=== PATIENT | female | born 1995 | race Caucasian/White ===

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

== ENCOUNTER 2018-03-12 19:43 | Emergency (ER) | payer OTHER ==
[2018-03-12] MEDS ORDERED: IBUPROFEN 400 MG TABLET (FP) PO ONE ×2 (20:04→20:54)
--- NOTE | 2018-03-12 20:04 | PDOC ---
Rapid Medical Evaluation Medical Evaluation: Allergies Allergy/AdvReac Type Severity Reaction Status Date / Time latex Allergy Severe Swelling Verified 09/26/16 16:53 Latex, Natural Rubber Allergy Itching Verified 09/26/16 16:53 No Known Drug Allergies Allergy Verified 09/26/16 16:53 SEAFOOD Allergy Severe Uncoded 09/26/16 16:53 I have performed a brief in-person evaluation of this patient. The patient presents with a chief complaint of: c/o sore throat and fever x 2 days; went to [facility] 2 days ago and was given Decadron 4 mg IV and Toradol 30 mg IV x 1 and discharged; states no further testing was done Pertinent physical exam findings: R tonsillar swelling, few exudates along R tonsil; uvula midline I have ordered the following: Reza Taylor The patient will proceed to the ED for further evaluation. 03/12/18 19:58
[2018-03-12 20:05] VITALS: BP 146/69; PULSE 105; TEMP 97.9; BMI 42.4
[2018-03-12] MEDS ORDERED: DEXAMETHASONE LIQUID 0.5 MG/5 ML 240 ML BULK BOTTLE PO ONE (21:13)
[2018-03-12] MEDS ORDERED: DEXAMETHASONE SOD PHOSPHATE 10 MG/1 ML VIAL ONE (21:14)
--- NOTE | 2018-03-12 21:41 | PDOC ---
History of Present Illness - General Chief Complaint: Sore Throat Stated Complaint: Sore Throat/FEVER Time Seen by Provider: 03/12/18 21:03 History Source: Patient Exam Limitations: No Limitations - History of Present Illness Initial Comments: 03/12/18 21:37 HISTORY OF PRESENT ILLNESS: 22-year-old woman denies medical history of presents emergency department for evaluation of 3 days of sore throat. Patient reports having fevers 2 days ago which have since resolved. She had a maximum temperature of 103 according to the patient. Patient was seen and evaluated at another hospital was given steroids and had blood and urine tested which came back negative. Patient was discharged home with instructions for symptomatic treatment. Patient reports the pain referred started on her left side and today when she woke up is currently on the right. She denies any difficulty breathing , drooling or change in voice. No recent travel or sick contacts. PAST MEDICAL HISTORY: Denies past medical history SURGICAL HISTORY: Denies ALLERGIES: No known drug allergies REVIEW OF SYSTEMS General/Constitutional: Resolved fevers and chills. Denies weakness, weight change. HEENT: Denies change in vision. Denies ear pain or discharge. +sore throat. Cardiovascular: Denies chest pain or shortness of breath. Respiratory: Denies cough, wheezing, or hemoptysis. Gastrointestinal: Denies nausea, vomiting, diarrhea or constipation. Denies rectal bleeding. Genitourinary: Denies dysuria, frequency, or change in urination. Musculoskeletal: Denies joint or muscle swelling or pain. Denies neck or back pain. Skin and breasts: Denies rash or easy bruising. Neurologic: Denies headache, vertigo, loss of consciousness, or loss of sensation. Psychiatric: Denies depression or anxiety. Endocrine: Denies increased thirst. Denies abnormal weight change. Hematologic/Lymphatic: Denies anemia, easy bleeding, or history of blood clots. Allergic/Immunologic: Denies hives or skin allergy. Denies latex allergy. PHYSICAL EXAM General Appearance: Well-appearing, appropriately dressed. No apparent distress , no intoxication. HEENT: EOMI, PERRLA, normal voice. No conjunctival pallor. No photophobia, scleral icterus. +3 tonsils present. Tonsils are erythematous without lesions or exudates present in the oropharynx. Uvula is midline. Cobblestoning noted in the posterior oropharynx. Neck: Supple. Trachea midline. No rigidity, carotid bruit, stridor, or thyromegaly. Tender anterior cervical lymphadenopathy present. Respiratory/Chest: Lungs CTAB. No shortness of breath, chest tenderness, respiratory distress, accessory muscle use. No crackles, rales, rhonchi, stridor , wheezing, dullness Cardiovascular: RRR. S1, S2. No JVD, murmur, bradycardia, tachycardia. Gastrointestinal/Abdominal: Normal bowel sounds. Abdomen soft, non-distended. No tenderness or rebound tenderness. No organomegaly, pulsatile mass, guarding, hernia, hepatomegaly, splenomegaly. Musculoskeletal/Extremities: Normal inspection. FROM of all extremities, normal capillary refill. Pelvis Stable. No CVA tenderness. No tenderness to extremities, pedal edema, swelling, erythema or deformity. Integumentary: Appropriate color, dry, warm. No cyanosis, erythema, jaundice or rash Neurologic: student services representative II-XII intact. Fully oriented, alert. Appropriate mood/affect. Motor strength 5/5. No appreciable EOM palsy, facial droop or sensory deficit. Past History - Past Medical History Allergies/Adverse Reactions: Allergies Allergy/AdvReac Type Severity Reaction Status Date / Time latex Allergy Severe Swelling Verified 03/12/18 19:59 Latex, Natural Rubber Allergy Itching Verified 03/12/18 19:59 No Known Drug Allergies Allergy Verified 09/26/16 16:53 SEAFOOD Allergy Severe Uncoded 03/12/18 19:59 Home Medications: Ambulatory Orders Amoxicillin - [Amoxicillin 500mg Capsule -] 500 mg PO BID #20 capsule 03/12/18 Asthma: Yes Cancer: No Cardiac Disorders: No Diabetes: No HTN: No Seizures: No Thyroid Disease: No - Surgical History Abdominal Surgery: Yes - Reproductive History (#): 1 Para: 0 Therapeutic (s) & number: No - Immunization History Immunization Up to Date: Yes - Suicide/Smoking/Psychosocial Hx Smoking Status: No Smoking History: Never smoked Have you smoked in the past 12 months: No Number of Cigarettes Smoked Daily: 0 Hx Alcohol Use: No Drug/Substance Use Hx: No Substance Use Type: None Hx Substance Use Treatment: No *Physical Exam - Vital Signs Last Vital Signs Temp Pulse Resp BP Pulse Ox 97.9 F 105 H 24 H 146/69 100 03/12/18 19:59 03/12/18 19:59 03/12/18 19:59 03/12/18 19:59 03/12/18 19:59 Moderate Sedation - Procedure Monitoring Vital Signs: Procedure Monitoring Vital Signs Temperature 97.9 F 03/12/18 19:59 Pulse Rate 105 H 03/12/18 19:59 Respiratory Rate 24 H 03/12/18 19:59 Blood Pressure 146/69 03/12/18 19:59 O2 Sat by Pulse Oximetry (%) 100 03/12/18 19:59 ED Treatment Course - Medications Given in the ED: ED Medications Discontinued Medications Generic Name Dose Route Start Last Admin Trade Name Bharatq PRN Reason Stop Dose Admin Dexamethasone 10 mg 03/12/18 21:13 03/12/18 21:16 Decadron Liquid - PO 03/12/18 21:14 10 mg ONCE ONE Administration Ibuprofen 800 mg 03/12/18 20:04 03/12/18 20:55 Motrin - PO 03/12/18 20:05 800 mg ONCE ONE Administration Medical Decision Making - Medical Decision Making 03/12/18 21:40 A/P: 22-year-old woman with pharyngitis Rapid strep testing Decadron 10 mg orally now Motrin as been given in rapid medical evaluation Reassess 03/12/18 22:17 Rapid strep testing is positive. I will discharge the patient home with prescription for amoxicillin. I discussed the physical exam findings, ancillary test results and final diagnoses with the patient. I answered all of the patient's questions. The patient was satisfied with the care received and felt comfortable with the discharge plan and treatment plan. The patient will call their primary care physician within 24 hours to arrange follow-up and will return to the Emergency Department with any new, persistent or worsening symptoms. *DC/Admit/Observation/Transfer Diagnosis at time of Disposition: Acute pharyngitis Qualifiers: Pharyngitis/tonsillitis etiology: streptococcus Qualified Code(s): J02.0 - Streptococcal pharyngitis - Discharge Dispostion Disposition: HOME Condition at time of disposition: Stable Decision to Admit order: No - Prescriptions Prescriptions: Amoxicillin - [Amoxicillin 500mg Capsule -] 500 mg PO BID #20 capsule - Referrals - Patient Instructions Additional Instructions: Take amoxicillin as prescribed. Salt water garggles. Throw away your toothbrush in 3 days and start using a new toothbrush. No sharing of drinks, utensils or toothbrushes. Take Motrin as directed by nursing home aide's instructions. Return to ED for worsening fevers, worsening sore throat, chest pain, shortness of breath or any other concerns. - Post Discharge Activity Forms/Work/School Notes: Back to Work
== END 2018-03-12 22:19 | disposition home or self-care (01) ==
LOC: JERFT 19:43
DX: J02.0 Streptococcal pharyngitis (principal); B95.0 Streptococcus, group A, as the cause of diseases classified elsewhere; Z87.09 Personal history of other diseases of the respiratory system
CPT/HCPCS: 87880; 99281-25

== ENCOUNTER 2019-11-19 08:20 | Emergency (ER) | payer OTHER ==
[2019-11-19 08:25] VITALS: BMI 42.0
--- OUTSIDE RECORDS SUMMARY | 2019-11-19 08:51 | XMS ---
:1995 Author Organization [facility] Care Team Providers Name Role Phone ED STAFF PHYSICIAN Unavailable Unavailable ED STAFF PHYSICIAN Unavailable Unavailable Re-disclosure Warning The records that you are about to access may contain information from federally- assisted alcohol or drug abuse programs. If such information is present, then the following federally mandated warning applies: This information has been disclosed to you from records protected by federal confidentiality rules (42 CFR part 2). The federal rules prohibit you from making any further disclosure of this information unless further disclosure is expressly permitted by the written consent of the person to whom it pertains or as otherwise permitted by 42 CFR part 2. A general authorization for the release of medical or other information is NOT sufficient for this purpose. The Federal rules restrict any use of the information to criminally investigate or prosecute any alcohol or drug abuse patient.The records that you are about to access may contain highly sensitive health information, the redisclosure of which is protected by Article 27-F of the [place] State Public Health law. If you continue you may haveaccess to information: Regarding HIV / AIDS; Provided by facilities licensed or operated by the [facility] Office of Mental Health; or Provided by the [facility] Office for People With Developmental Disabilities. If such information is present, then the following [facility] mandated warning applies: This information has been disclosed to you from confidential records which are protected by state law. State law prohibits you from making any further disclosure of this information without the specific written consent of the person to whom it pertains, or as otherwise permitted by law. Any unauthorized further disclosure in violation of state law may result in a fine or detention sentence or both. A general authorization for the release of medical or other information is NOT sufficient authorization for further disclosure. Allergies and Adverse Reactions Type Description Substance Reaction Status Data Source(s ) latex latex latex Unknown Active eCW[facility] ([facility] latex latex latex Unknown Active eCW2 ([facility]) Propensity to latex Propensity to Unknown Active eCW2 (Pl [facility]ed adverse reactions adverse reactions [facility]) Propensity to latex No known hives Active eCW3 ([facility] adverse reactions [facility]) Propensity to latex No known hives Active eCW3 ([facility] adverse reactions [facility]) No Known No Known Allergies No Known eCW2 ( [facility] Allergies [facility]) Encounters Encounter Providers Location Date Indications Data Source(s ) [facility] [place] [facility]T [facility] 02/22/2019 [facility] [place] AM EST [facility] 02/08/2019 [facility] [place] AM EST [facility] 02/06/2019 [facility]CW[facility] [place] AM EST [facility]) Emergency Attender: HAKAN Tamez 01/28/2019 [facility] ED STAFF 04:07:00 [facility] PHYSICIANAttend PM EST - er: STAFF ED 01/28/2019 STAFF 05:19:00 PHYSICIANAdmitt PM EST er: HAKAN ED STAFF PHYSICIAN Patient discharged. Outpatient [facility] 10/29/2018 12:00:00 eCW3 ([facility] A28 AM EDT - 10/29/[address] [facility]) 12:00:00 AM EDT Outpatient [facility] 08/21/2018 12:00:00 eCW3 ([facility] A28 AM EDT - 08/21/[address] [facility]) 12:00:00 AM EDT [facility] 12:00:00 eCW2 ([facility] [place] [facility] AM EDT [facility]) Immunizations Vaccine Date Status Description Data Source(s) No Known Immunizations completed eCW2 ([facility]) No Known Immunizations completed eCW2 ([facility]) No Known Immunizations completed eCW2 ([facility]) Medications Medication Brand Start Product Dose Route Administrative Pharmacy [facility] Indications Reaction Description Data Name Date Form Instructions Instructions Source(s) DEPO-CREMATORY OPERATOR UNK 11/07/ active DEPO-PROV ERA eCW3 A 150 MG/ML 2016 150 MG/ML ([facility] 12:00: [facility] 00 AM [facility] EDT Care) DEPO-CREMATORY OPERATOR UNK 11/07/ active DEPO-PROV ERA eCW3 A 150 MG/ML 2016 150 MG/ML ([facility] 12:00: [facility] 00 AM [facility] EDT Care) UNK 12/29/ suspend eC W3 Vitamins 2015 ed Vitamins (Sen 12:00: [facility] 00 AM Health EDT Care) Iron UNK 12/29/ suspend Iron eCW3 2016 ed (Sen 12:00: [facility] 00 AM Health EDT Care) UNK 12/29/ suspend eC W3 Vitamins 2016 ed Vitamins (Sen 12:00: [facility] 00 AM Health EDT Care) Iron UNK 12/29/ suspend Iron eCW3 2016 ed (Sen 12:00: [facility] 00 AM Health EDT Care) Diphenhydra diphen 1 complet Wilfredo nt mine hydram ed Agusto Hydrochlori ine Medical de 25 MG HCl 25 Center Oral mg Capsule Capsul diphenhydra e, mine HCl 25 Ordere mg Capsule, d By: Ordered By: Elmer Lovell, FNPDirectio FNPDir ns: 1 ection capsule s: 1 oral every capsul six hours e oral PRN itching every six hours PRN itchin g DEPO-CREMATORY OPERATOR UNK active DEPO-CREMATORY OPERATOR A eCW3 A 150 MG/ML 150 MG/ML ([facility]) medroxyprog Depo-P active 1 ml eCW2 esterone rovera ([facility]anned acetate 150 150 [facility] MG/ML MG/ML - [place] [facility] [place] [employer] [Depo-Prove ed) ra] Depo-Gear Shaver Set Up Operator a 150 MG/ML medroxyprog Depo-P active 1 ml eCW2 esterone rovera (Planned acetate 150 150 [facility] MG/ML MG/ML - Sen [facility] [place] [employer] [facility] [Depo-Prove ed) ra] Depo-Gear Shaver Set Up Operator a 150 MG/ML DEPO-CREMATORY OPERATOR UNK active DEPO-CREMATORY OPERATOR A eCW3 A 150 MG/ML 150 MG/ML ([facility]) medroxyprog Depo-P active 1 ml eCW2 esterone rovera (Planned acetate 150 150 [facility] MG/ML MG/ML - Sen [facility] [place] [employer] [facility] [Depo-Prove ed) ra] Depo-Gear Shaver Set Up Operator a 150 MG/ML medroxyprog Depo-P 1.0 active Depo-Prov era eCW2 esterone rovera {ml} 150 MG/ML (Pham nned acetate 150 150 Pa[facility] od MG/ML MG/ML - Sen In[facility] [employer] [facility] [Depo-Prove ed) ra] Depo-Gear Shaver Set Up Operator a 150 MG/ML DEPO-CREMATORY OPERATOR UNK active DEPO-CREMATORY OPERATOR A eCW3 A ([facility]) DEPO-CREMATORY OPERATOR UNK active DEPO-CREMATORY OPERATOR A eCW3 A ([facility]) Insurance Providers Payer name Policy type Policy ID Covered Covered green party's Policy P clara / Coverage green party ID relationship to [place] Inf ormation type [place] [id number] KASHMIR W [id number] OPTIMA O 01 HEALTH Problems, Conditions, and Diagnoses Code Display Name Description Problem Type Effective Data Sour ce(s) Dates Z30.013 Encounter for Encounter for Problem 11/07/2016 eCW3 (Hu dson initial initial 12:00:00 AM [facility] prescription of prescription of EDT Care ) injectable injectable contraceptive contraceptive Z39.2 Encounter for Encounter for Problem 08/01/2016 eCW3 (Hu dson visit visit 12:00:00 AM [facility] EDT Care) Z33.1 Problem eCW3 ([facility]) Unknown Problems Unknown Problems Problem eC W2 ([facility]) Unknown Problems Unknown Problems Problem eC W2 ([facility]) Unknown Problems Unknown Problems Problem eC W2 ([facility]) R21 Rash and other RASH AND OTHER Diagnosis 01/28/2019 [facility] nonspecific skin NONSPECIFIC SKIN 04:07:00 PM edical Center eruption ERUPTION EST Surgeries/Procedures Procedure Description Date Indications Data Source(s) US Abdominal, 02/08/2019 eCW2 ([facility] uterus 12:00:00 AM EST [facility]) HEMOGLOBIN 02/06/2019 eCW2 ([facility] 12:00:00 AM EST [facility] [facility]) US transvaginal, 02/06/2019 eCW2 (Plann ed uterus 12:00:00 AM EST [facility] [place] [facility]) Test 02/06/2019 eCW2 ([facility] 12:00:00 AM EST [facility]) BLOOD TYPING RH FACTOR 02/06/2019 eCW2 ([facility] 12:00:00 AM EST [facility]) GONORRHEA, DANG 02/06/2019 eCW2 ([facility] 12:00:00 AM EST [facility]) CHLAMYDIA, DANG 02/06/2019 eCW2 ([facility] 12:00:00 AM EST [facility]) Results ID Date Data Source Urine Test (HSPT) 10/28/2019 06:38:14 AM EDT eCW2 ([facility]) Name Value Range Interpretation Code Description Data Shanta rce(s) Supporting Document(s ) negative Result eCW2 ([facility]) ID Date Data Source Urinalysis 03/10/2018 11:56:00 PM EST [facility] Name Value Range Interpretation Description Data Sup porting Code Source(s) Document(s ) UNK CLEAR <content Saint styleCode="Ayo Agusto d">Urine Medical Clarity Center </content>JANNA R <content styleCode="Bri lics"> (CLEAR )</content> Color of Urine YELLOW <content Saint styleCode="Ayo Agusto d">Color, Medical Urine Center </content>YELL OW <content styleCode="Bri lics"> (YELLOW )</content> Glucose NEGATIVE <content Saint [Mass/volume] styleCode="Ayo Whittakers in Urine by d">Urine Medical Test strip Glucose Center </content>NEGA TIVE MG/DL<content styleCode="Bri lics"> (NEGATIVE MG/DL)</conten t> Specific 1.015-1.02 <content Saint gravity of 5 styleCode="Ayo Whittakers Urine by Test d">Urine Medical strip Specific Center [place] </content>1.02 0 NM<content styleCode="Bri lics"> (1.015-1.025 NM)</content> Hemoglobin NEGATIVE <content Saint [Presence] in styleCode="Ayo Whittakers Urine by Test d">Urine Blood Medical strip </content>MODE Center RATE <content styleCode="Bri lics"> (NEGATIVE )</content> Ketones NEGATIVE <content Saint [Mass/volume] styleCode="Ayo Agusto in Urine by d">Urine Medical Test strip Ketone Center </content>NEGA TIVE MG/DL<content styleCode="Bri lics"> (NEGATIVE MG/DL)</conten t> UNK NEGATIVE <content Saint styleCode="Ayo Agusto d">Urine Medical Bilirubin Center </content>NEGA TIVE <content styleCode="Bri lics"> (NEGATIVE )</content> pH of Urine by 4.5-8.0 <content Saint Test strip styleCode="Ayo Agusto d">Urine pH Medical </content>7.5 Center NM<content styleCode="Bri lics"> (4.5-8.0 NM)</content> Leukocyte NEGATIVE <content Saint esterase styleCode="Ayo Agusto [Presence] in d">Urine Medical Urine by Test Leukocyte Center strip </content>NEGA TIVE <content styleCode="Bri lics"> (NEGATIVE )</content> Nitrite NEGATIVE <content Saint [Presence] in styleCode="Ayo Agusto Urine by Test d">Urine Medical strip Nitrite Center </content>NEGA TIVE <content styleCode="Bri lics"> (NEGATIVE )</content> Protein NEGATIVE <content Saint [Mass/volume] styleCode="Ayo Agusto in Urine by d">Urine Medical Test strip Protein Center </content>NEGA TIVE MG/DL<content styleCode="Bri lics"> (NEGATIVE MG/DL)</conten t> Urobilinogen 0.2-1.0 <content Saint [Units/volume] styleCode="Ayo Agusto in Urine by d">Urine Medical Test strip Urobilinogen Center </content>0.2 MG/DL<content styleCode="Bri lics"> (0.2-1.0 MG/DL)</conten t> UNK <content Saint styleCode="Ayo Agusto d">Epithelial Medical Cell Center </content>2-5 LPF (Reference Range: not available)<br/ > UNK 0-3 <content Saint styleCode="Ayo Agusto d">Urine Red Medical Blood Cell Center </content>5 - 10 HPF<content styleCode="Bri lics"> (0-3 HPF)</content> UNK NEGATIVE <content Saint styleCode="Ayo Agusto d">Urine Medical Bacteria Center </content>FEW HPF<content styleCode="Bri lics"> (NEGATIVE HPF)</content> UNK 0-3 <content Saint styleCode="Ayo Agusto d">Urine White Medical Blood Cell Center </content>0-3 HPF<content styleCode="Bri lics"> (0-3 HPF)</content> ID Date Data Source HematologyRou 03/10/2018 11:56:00 PM EST [facility] Name Value Range Interpretation Description Data Sup porting Code Source(s) Document(s ) Hemoglobin 12.3-16. <content Saint [Mass/volume] in 0 styleCode="Bold Agusto Blood ">Hemoglobin Medical </content>12.4 Center G/DL<content styleCode="Ital ics"> (12.3-16.0 G/DL)</content> Erythrocytes 4.0-5.1 <content Saint [#/volume] in styleCode="Bold Agusto Blood by ">Red Blood Medical Automated count Cell Count Center </content>4.60 MCUMM<content styleCode="Ital ics"> (4.0-5.1 MCUMM)</content > Leukocytes 4.4-11.0 Above high <content Saint [#/volume] in normal styleCode="Bold Agusto Blood by ">White Blood Medical Automated count Cell Count Center </content>12.62 KCUMM H<content styleCode="Ital ics"> (4.4-11.0 KCUMM)</content > Erythrocyte mean 26.0-34. <content Saint corpuscular 0 styleCode="Bold Agusto hemoglobin ">Mean Medical [Entitic mass] Corposcular Center by Automated Hemoglobin count </content>27.0 PG<content styleCode="Ital ics"> (26.0-34.0 PG)</content> Erythrocyte mean 80.0-100 <content Saint corpuscular .0 styleCode="Bold Agusto volume [Entitic ">Mean Medical volume] by Corpuscular Center Automated count Volume </content>81.7 FL<content styleCode="Ital ics"> (80.0-100.0 FL)</content> Erythrocyte mean 32.0-37. <content Saint corpuscular 0 styleCode="Bold Agusto hemoglobin ">Mean Corpus. Medical concentration Hgb Center [Mass/volume] by Concentration Automated count (MCHC) </content>33.0 G/DL<content styleCode="Ital ics"> (32.0-37.0 G/DL)</content> Hematocrit 36.0-46. <content Saint [Volume 0 styleCode="Anyi Whittakers Fraction] of ">Hematocrit Medical Blood by </content>37.6 Center Automated count %<content styleCode="Ital ics"> (36.0-46.0 %)</content> Platelets 130-400 <content Saint [#/volume] in styleCode="Bold Agusto Blood by ">Platelet Medical Automated count Count Center </content>289 KCUMM<content styleCode="Ital ics"> (130-400 KCUMM)</content > Erythrocyte 11.5-14. <content Saint distribution 5 styleCode="Anyi Whittakers width [Ratio] by ">Red Cell Medical Automated count Distribution Center Width </content>12.8 %<content styleCode="Ital ics"> (11.5-14.5 %)</content> UNK 0 <content Saint styleCode="Bold Agusto ">Nucleated Red Medical Blood Cell Center </content>0.0 /100<content styleCode="Ital ics"> (0 /100)</content> Platelet mean 8.0-11.0 Above high <content Saint volume [Entitic normal styleCode="Bold Agusto volume] in Blood ">Mean Platelet Medical by Automated Volume Center count </content>11.3 FL H<content styleCode="Ital ics"> (8.0-11.0 FL)</content> UNK 0.0 <content Saint styleCode="Bold Agusto ">Nucleated Red Medical Blood Cell Center Count </content>0.00 KCUMM<content styleCode="Ital ics"> (0.0 KCUMM)</content > ID Date Data Source GFR(Creatinine) 03/10/2018 11:56:00 PM EST [facility] Name Value Range Interpretation Code Description Data Shanta rce(s) Supporting Document(s ) UNK > 60 <content [facility] styleCode="Bold"> Medical Cent er EGFR </content>113 GFR<content styleCode="Italic s"> (> 60 GFR)</content> ID Date Data Source BMP 03/10/2018 11:56:00 PM EST [facility] Name Value Range Interpretation Description Data Sup porting Code Source(s) Document(s ) Potassium 3.5-5.3 <content Saint [Moles/volume] styleCode="Ayo Whittakers in Serum or d">Potassium Medical Plasma </content>4.9 Center MEQ/L<content styleCode="Bri lics"> (3.5-5.3 MEQ/L)</conten t> Sodium 137-145 <content Saint [Moles/volume] styleCode="Ayo Whittakers in Serum or d">Sodium Medical Plasma </content>138 Center MEQ/L<content styleCode="Bri lics"> (137-145 MEQ/L)</conten t> Carbon 22-30 <content Saint dioxide, total styleCode="Ayo Whittakers [Moles/volume] d">Carbon Medical in Serum or Dioxide Center Plasma </content>22 MEQ/L<content styleCode="Bri lics"> (22-30 MEQ/L)</conten t> Creatinine 0.5-1.3 <content Saint [Mass/volume] styleCode="Ayo Whittakers in Serum or d">Creatinine Medical Plasma </content>0.7 Center MG/DL<content styleCode="Bri lics"> (0.5-1.3 MG/DL)</conten t> Glucose 74-106 <content Saint [Mass/volume] styleCode="Ayo Whittakers in Serum or d">Glucose Medical Plasma </content>92 Center MG/DL<content styleCode="Bri lics"> (74-106 MG/DL)</conten t> UNK 7-17 <content Saint styleCode="Ayo Liz d">BUN Medical </content>14 Center MG/DL<content styleCode="Bri lics"> (7-17 MG/DL)</conten t> Chloride 98-107 <content Saint [Moles/volume] styleCode="Ayo Whittakers in Serum or d">Chloride Medical Plasma </content>102 Center MEQ/L<content styleCode="Bri lics"> (98-107 MEQ/L)</conten t> Calcium 8.4-10.2 <content Saint [Mass/volume] styleCode="Ayo Agusto in Serum or d">Calcium Medical Plasma </content>9.9 Center MG/DL<content styleCode="Bri lics"> (8.4-10.2 MG/DL)</conten t> UNK > 60 <content Saint styleCode="Ayo Agusto d">EGFR Medical </content>113 Center GFR<content styleCode="Bri lics"> (> 60 GFR)</content> Procedure Social History Code Duration Value Status Description Data Source(s ) Smoking 10/28/2019 Never Smoker completed Never Smoker eCW2 ([facility] 12:00:00 AM EDT [facility]) Smoking 02/03/2019 Never Smoker completed Never Smoker eCW3 ([facility] 12:00:00 AM EST [facility]) Smoking 02/03/2019 Never Smoker completed Never Smoker eCW3 ([facility] 12:00:00 AM EST [facility]) Smoking 01/28/2019 Denies Ever completed Denies Ever Smoked [facility] 04:54:00 PM EST Smoked Medical C enter Smoking 01/28/2019 Denies Ever completed Denies Ever Smoked [facility] 04:35:00 PM EST Smoked Medical C enter Smoking 03/11/2018 Denies Ever completed Denies Ever Smoked [facility] 01:02:00 AM EST Smoked Medical C enter Smoking 03/10/2018 Denies Ever completed Denies Ever Smoked [facility] 11:40:00 PM EST Smoked Medical C enter Smoking 03/10/2018 Denies Ever completed Denies Ever Smoked [facility] 11:39:00 PM EST Smoked Medical C enter Never Smoker completed Never Smoker eCW2 ([facility]) Never Smoker completed Never Smoker eCW3 ([facility]) Never Smoker completed Never Smoker eCW3 ([facility]) Smoking Current Smoker completed Current Smoker eCW2 ( [facility]) Smoking Current Smoker completed Current Smoker eCW2 ( [facility]) Smoking Current Smoker completed Current Smoker eCW2 ( [facility]) Vital Signs ID Date Data Source UNK Name Value Range Interpretation Code Description Data Source(s) Diastolic blood 62 mm[Hg] 62 mm[Hg] eCW2 (Pham nned pressure [facility]) Systolic blood 113 mm[Hg] 113 mm[Hg] eCW2 ([facility] pressure [facility]) Body mass index 42.38 kg/m2 42.38 kg/m2 eCW2 (P lanned (BMI) [Ratio] [facility]) Body weight 217 [lb_av] 217 [lb_av] eCW2 ([facility]) Body height 60 [in_i] 60 [in_i] eCW2 ([facility]) Diastolic blood 64 mm[Hg] 64 mm[Hg] eCW2 (Pham nned pressure [facility]) Systolic blood 91 mm[Hg] 91 mm[Hg] eCW2 ([facility] pressure [facility]) Body mass index 43.94 kg/m2 43.94 kg/m2 eCW2 (P lanned (BMI) [Ratio] [facility]) Body weight 225 [lb_av] 225 [lb_av] eCW2 (Plann ed Measured [facility]) Body height 60 [in_us] 60 [in_us] eCW2 ([facility]) Diastolic blood 64 mm[Hg] 64 mm[Hg] eCW2 (Pham nned pressure [facility]) Systolic blood 91 mm[Hg] 91 mm[Hg] eCW2 ([facility] pressure [facility]) Body mass index 43.94 kg/m2 43.94 kg/m2 eCW2 (P lanned (BMI) [Ratio] [facility]) Body weight 225 [lb_av] 225 [lb_av] eCW2 (Plann ed Measured [facility]) Body height 60 [in_us] 60 [in_us] eCW2 ([facility]) Diastolic blood 83 mm[Hg] 83 mm[Hg] eCW2 (Pham nned pressure [facility]) Systolic blood 107 mm[Hg] 107 mm[Hg] eCW2 ([facility]) Body height 60 [in_us] 60 [in_us] eCW2 ([facility]) Body weight 91.169720 91.417830 kg [facility] Measured kg [facility] Body temperature 36.291618 36.998841 [facility] Respiratory rate 18 /min 18 /min [facility] Oxygen saturation 99 % 99 % [facility] blood [facility] by Pulse oximetry Heart rate 101 /min 101 /min [facility] Diastolic blood 87 mm[Hg] 87 mm[Hg] [facility] Systolic blood 155 mm[Hg] 155 mm[Hg] [facility] Body temperature 36.400752 36.516450 [facility] Respiratory rate 17 /min 17 /min [facility] Oxygen saturation 98 % 98 % [facility] blood [facility] by Pulse oximetry Heart rate 98 /min 98 /min [facility] Diastolic blood 65 mm[Hg] 65 mm[Hg] [facility] Systolic blood 121 mm[Hg] 121 mm[Hg] [facility] Body temperature 36.706479 36.147973 [facility] Respiratory rate 20 /min 20 /min [facility] Oxygen saturation 98 % 98 % [facility] by Pulse oximetry Heart rate 111 /min 111 /min [facility] Diastolic blood 49 mm[Hg] 49 mm[Hg] [facility] Systolic blood 118 mm[Hg] 118 mm[Hg] [facility] Body temperature 38.754885 38.884904 [facility] Respiratory rate 18 /min 18 /min [facility] Oxygen saturation 98 % 98 % [facility] by Pulse oximetry Heart rate 116 /min 116 /min [facility] Diastolic blood 98 mm[Hg] 98 mm[Hg] [facility] Systolic blood 145 mm[Hg] 145 mm[Hg] [facility] Patient Treatment Plan of Care Planned Activity Planned Date Details Description Data Source (s) Diphenhydramine Hydrochloride [facility] 25 MG Oral Capsule Center
[2019-11-19] MEDS ORDERED: IBUPROFEN 600 MG TABLET (FP) PO ONE ×2 (09:27→09:41)
[2019-11-19] MEDS ORDERED: LACTATED RINGERS SOLUTION 1000 ML INFUS.BAG IV ONE (09:27)
[2019-11-19 10:21] LABS: BASO % 0.9 % (0-2.0); EOS % 0.3 % (0-4.5); HEMATOCRIT 33.4 % (32.4-45.2); HEMOGLOBIN 11.2 GM/dL (10.7-15.3); MCHC 33.5 g/dl (32.0-36.0); MEAN CELL VOLUME 80.6 fl (80-96); MEAN PLT VOLUME 8.7 fl (7.5-11.1); MONO % 4.3 % (3.8-10.2); NEUT % 83.5 % (42.8-82.8); PLATELET COUNT 243 K/MM3 (134-434); RBC 4.14 M/mm3 (3.60-5.2); RDW 15.4 % (11.6-15.6); WHITE BLOOD COUNT 5.7 K/mm3 (4.0-10.0)
[2019-11-19 10:23] LABS: PH,URINE >= 9.0 (5.0-8.0); URINE APPEARANCE CLEAR; URINE BILIRUBIN NEGATIVE (NEGATIVE); URINE COLOR YELLOW; URINE GLUCOSE (UA) NEGATIVE (NEGATIVE); URINE KETONE NEGATIVE (NEGATIVE); URINE LEUK ESTERASE NEGATIVE (NEGATIVE); URINE NITRITE NEGATIVE (NEGATIVE); URINE PROTEIN NEGATIVE (NEGATIVE)
[2019-11-19 10:25] LABS: HCG,QUALITATIVE URINE Negative
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
[2019-11-19 10:31] VITALS: TEMP 98.5
[2019-11-19 10:52] LABS: ALBUMIN 3.6 g/dl (3.4-5.0); ALK PHOS 81 U/L (45-117); ANION GAP 6 MMOL/L (8-16); BILIRUBIN,TOTAL 0.2 mg/dL (0.2-1); BLOOD UREA NITROGEN 15.2 mg/dL (7-18); CALCIUM 8.6 mg/dL (8.5-10.1); CHLORIDE 106 mmol/L (98-107); CO2 26 mmol/L (21-32); CREATININE 0.7 mg/dL (0.55-1.3); GLUCOSE,RANDOM 97 mg/dL (74-106); POTASSIUM 4.8 mmol/L (3.5-5.1); SGOT/AST 19 U/L (15-37); SGPT/ALT 27 U/L (13-61); SODIUM 138 mmol/L (136-145); TOT PROT 6.9 g/dl (6.4-8.2)
[2019-11-19 11:40] VITALS: BP 130/81; PULSE 89
--- NOTE | 2019-11-19 13:55 | EKG ---
Test Reason : Blood Pressure : / mmHG Vent. Rate : 096 BPM Atrial Rate : 096 BPM P-R Int : 140 ms QRS Dur : 074 ms QT Int : 328 ms P-R-T Axes : 015 019 026 degrees QTc Int : 414 ms NORMAL SINUS RHYTHM NORMAL ECG WHEN COMPARED WITH ECG OF 26-SEP-2016 16:34, NO SIGNIFICANT CHANGE WAS FOUND Confirmed by Srinivas Calderon ([id number]) on 11/19/2019 1:55:17 PM Referred By: Confirmed By:Srinivas Calderon
== END 2019-11-19 11:40 | disposition home or self-care (01) ==
LOC: JER 08:20
DX: R55 Syncope and collapse (principal); R50.9 Fever, unspecified
CPT/HCPCS: 36415; 71045-TC-FY; 80053; 81003; 82550; 84484; 84703; 85025; 87086; 87186; 93005; 93010; 99285-25; U0003

== ENCOUNTER 2020-02-24 17:12 | Emergency (ER) | payer OTHER ==
[2020-02-24 17:23] VITALS: BP 128/71; PULSE 105; TEMP 98.3; BMI 34.2
[2020-02-24] MEDS ORDERED: ACETAMINOPHEN 1000 MG/100 ML VIAL (NON FORMULARY) IVPB ONE (17:51)
[2020-02-24] MEDS ORDERED: SODIUM CHLORIDE 1,000 ML IV STA (17:51)
[2020-02-24] MEDS ORDERED: ACETAMINOPHEN INJECTION 100 ML IVPB ONE (18:20)
[2020-02-24 18:48] LABS: BASO % 0.5 % (0-2.0); EOS % 0.3 % (0-4.5); HEMATOCRIT 32.9 % (32.4-45.2); HEMOGLOBIN 11.1 GM/dL (10.7-15.3); MCH 27.8 pg (25.7-33.7); MCHC 33.7 g/dl (32.0-36.0); MEAN CELL VOLUME 82.3 fl (80-96); MEAN PLT VOLUME 8.8 fl (7.5-11.1); MONO % 5.9 % (3.8-10.2); NEUT % 69.3 % (42.8-82.8); PLATELET COUNT 275 K/MM3 (134-434); RBC 3.99 M/mm3 (3.60-5.2); RDW 14.2 % (11.6-15.6); WHITE BLOOD COUNT 7.3 K/mm3 (4.0-10.0)
[2020-02-24 18:51] LABS: EPI CELLS >36 /uL (0-25.1); HYALINE CASTS 7 /uL (0-3.1); URINE APPEARANCE CLOUDY; URINE BACTERIA 2632 /uL (0-1359); URINE BILIRUBIN NEGATIVE (NEGATIVE); URINE COLOR YELLOW; URINE GLUCOSE (UA) NEGATIVE (NEGATIVE); URINE KETONE NEGATIVE (NEGATIVE); URINE LEUK ESTERASE TRACE (NEGATIVE); URINE NITRITE NEGATIVE (NEGATIVE); URINE PROTEIN NEGATIVE (NEGATIVE); URINE RBC 10 /uL (0-23.9); URINE UROBILINOGEN 0.2 mg/dL (0.2-1.0); URINE WBC 253 /uL (0-25.8)
[2020-02-24 19:06] LABS: POTASSIUM 4.5 mmol/L (3.5-5.1)
[2020-02-24 19:09] LABS: CALCIUM 9.4 mg/dL (8.5-10.1)
[2020-02-24 19:10] LABS: ALBUMIN 3.1 g/dl (3.4-5.0); BLOOD UREA NITROGEN 11.2 mg/dL (7-18); MAGNESIUM 1.6 mg/dL (1.8-2.4)
[2020-02-24 19:13] LABS: CREATININE 0.6 mg/dL (0.55-1.3)
[2020-02-24 19:14] LABS: BILIRUBIN,TOTAL 0.8 mg/dL (0.2-1); TOT PROT 6.4 g/dl (6.4-8.2)
[2020-02-24] MEDS ORDERED: MAGNESIUM SULF 50% (8.12 MEQ/2 ML-1 GM VIAL) IVPB ONE (20:15)
[2020-02-24] MEDS ORDERED: MAGNESIUM SULFATE IN WATER 2 GM/50 ML IVPB IVPB ONE (20:19)
== END 2020-02-24 21:19 | disposition home or self-care (01) ==
LOC: JER 17:12
PROC: 3E033NZ Introduction of Analgesics, Hypnotics, Sedatives into Peripheral Vein, Percutaneous Approach (ICD-10-PCS; principal; 2020-02-24)
PROC: 3E033GC Introduction of Other Therapeutic Substance into Peripheral Vein, Percutaneous Approach (ICD-10-PCS; 2020-02-24)
PROC: 3E0337Z Introduction of Electrolytic and Water Balance Substance into Peripheral Vein, Percutaneous Approach (ICD-10-PCS; 2020-02-24)
DX: O23.42 Unspecified infection of urinary tract in pregnancy, second trimester (principal); Z3A.15 15 weeks gestation of pregnancy
CPT/HCPCS: 36415; 76816-TC; 80053; 81003; 83690; 83735; 85025; 87086; 99285-25; J0131

== ENCOUNTER 2022-08-17 22:47 | Emergency (ER) | payer SELFPAY ==
[2022-08-17 22:58] VITALS: BP 121/63; PULSE 99; RESP 18; TEMP 98.3; BMI 41.0
[2022-08-18] MEDS ORDERED: ONDANSETRON *ODT* 4 MG TABLET SL ONE (00:44)
[2022-08-18] MEDS ORDERED: ONDANSETRON *ODT* 4 MG TABLET ONE (00:49)
== END 2022-08-18 01:58 | disposition home or self-care (01) ==
LOC: JER 22:47
DX: N93.9 Abnormal uterine and vaginal bleeding, unspecified (principal); R11.2 Nausea with vomiting, unspecified
CPT/HCPCS: 84703; 99283-25; Q0162